=== PATIENT | male | born 1990 | race Caucasian/White ===

== ENCOUNTER 2023-05-01 07:01 | Emergency (ER) | payer OTHER ==
[2023-05-01 07:12] VITALS: BP 156/99; PULSE 60; RESP 18; TEMP 97.3; BMI 33.6
[2023-05-01] MEDS ORDERED: ONDANSETRON 4 MG/2 ML VIAL ONE (08:07)
[2023-05-01] MEDS ORDERED: MAG HYDROX/AL HYDROX/SIMETH 30 ML UNIT-DOSE CUP ONE (08:07)
[2023-05-01] MEDS ORDERED: ACETAMINOPHEN INJECTION 100 ML IVPB ONE (08:07)
[2023-05-01] MEDS ORDERED: FAMOTIDINE 20 MG/50 ML IVPB 20 MG/50 ML MG IVPB ONE (08:09)
[2023-05-01] MEDS: FAMOTIDINE 20 MG/50 ML IVPB 20 MG/50 ML MG IVPB ONE (08:16)
[2023-05-01] MEDS: ACETAMINOPHEN 1000 MG/100 ML BAG IVPB ONE (08:16)
[2023-05-01] MEDS: SODIUM CHLORIDE 0.9% 500 ML INFUS.BAG IV ONE (08:16)
[2023-05-01] MEDS: ONDANSETRON 4 MG/2 ML VIAL IVPUSH ONE (08:16)
[2023-05-01] MEDS: MAG HYDROX/AL HYDROX/SIMETH -MYLANTA- ORAL SUSPENSION PO ONE (08:16)
[2023-05-01 08:21] LABS: BASO % 0.4 % (0-2.0); EOS % 0.5 % (0-4.5); HEMATOCRIT 45.9 % (35.4-49); HEMOGLOBIN 15.9 GM/dL (11.7-16.9); LYMPH % 13.4 % (8-40); MCH 31.7 pg (25.7-33.7); MCHC 34.7 g/dl (32.0-35.9); MEAN CELL VOLUME 91.2 fl (80-96); MEAN PLT VOLUME 8.1 fl (7.5-11.1); MONO % 5.4 % (3.8-10.2); NEUT % 80.3 % (42.8-82.8); PLATELET COUNT 239 10^3/uL (134-434); RBC 5.03 M/mm3 (4.00-5.60); RDW 13.7 % (11.9-15.9); WHITE BLOOD COUNT 17.5 K/mm3 (4.0-10.0)
[2023-05-01 08:24] LABS: EPI CELLS 5 /uL (0-25.1); HYALINE CASTS 1 /uL (0-3.1); PH,URINE 6.5 (5.0-8.0); URINE APPEARANCE CLEAR; URINE BACTERIA 6 /uL (0-1359); URINE BILIRUBIN NEGATIVE (NEGATIVE); URINE COLOR YELLOW; URINE GLUCOSE (UA) NEGATIVE (NEGATIVE); URINE KETONE NEGATIVE (NEGATIVE); URINE LEUK ESTERASE 1+ (NEGATIVE); URINE NITRITE NEGATIVE (NEGATIVE); URINE PROTEIN TRACE (NEGATIVE); URINE RBC 10 /uL (0-23.9); URINE UROBILINOGEN 0.2 mg/dL (0.2-1.0); URINE WBC 94 /uL (0-25.8)
[2023-05-01 08:39] LABS: POTASSIUM 4.2 mmol/L (3.5-5.1)
[2023-05-01 08:41] LABS: CALCIUM 9.3 mg/dL (8.5-10.1)
[2023-05-01 08:42] LABS: BLOOD UREA NITROGEN 9.9 mg/dL (7-18); MAGNESIUM 1.8 mg/dL (1.8-2.4)
[2023-05-01 08:45] LABS: CREATININE 1.1 mg/dL (0.55-1.3)
[2023-05-01 08:46] LABS: TOT PROT 7.2 g/dl (6.4-8.2)
[2023-05-01 08:47] LABS: BILIRUBIN,TOTAL 0.3 mg/dL (0.2-1)
[2023-05-01] MEDS ORDERED: METOCLOPRAMIDE HCL INJECTION 10 MG/2 ML VIAL ONE (10:54)
[2023-05-01] MEDS ORDERED: HALOPERIDOL LACTATE 5 MG/ML ONE (10:54)
[2023-05-01] MEDS: HALOPERIDOL LACTATE 5 MG/ML IM ONE (11:12)
[2023-05-01] MEDS: METOCLOPRAMIDE HCL INJECTION 10 MG/2 ML VIAL IVPB ONE (11:12)
== END 2023-05-01 11:29 | disposition home or self-care (01) ==
LOC: JER 07:01
PROC: 3E033GC Introduction of Other Therapeutic Substance into Peripheral Vein, Percutaneous Approach (ICD-10-PCS; principal; 2023-05-01)
PROC: 3E033GC Introduction of Other Therapeutic Substance into Peripheral Vein, Percutaneous Approach (ICD-10-PCS; 2023-05-01)
PROC: 3E033GC Introduction of Other Therapeutic Substance into Peripheral Vein, Percutaneous Approach (ICD-10-PCS; 2023-05-01)
PROC: 3E033NZ Introduction of Analgesics, Hypnotics, Sedatives into Peripheral Vein, Percutaneous Approach (ICD-10-PCS; 2023-05-01)
PROC: 3E023GC Introduction of Other Therapeutic Substance into Muscle, Percutaneous Approach (ICD-10-PCS; 2023-05-01)
DX: R11.2 Nausea with vomiting, unspecified (principal); R10.10 Upper abdominal pain, unspecified; R10.13 Epigastric pain; Z20.822 Contact with and (suspected) exposure to COVID-19
CPT/HCPCS: 0241U-QW; 36415; 71046-TC-FY; 76705-TC; 80053; 81003; 83690; 83735; 84484; 85025; 87086; 93005; 93010; 99285-25; J0131